=== PATIENT | female | born 1960 | race Two or more races ===

== ENCOUNTER 2019-06-05 20:50 | Emergency (ER) | payer OTHER ==
[~2019-06-05] VITALS: Ht 152.4 cm; Wt 70.3 kg
[2019-06-05] MEDS ORDERED: ZONEGRAN100 MG (21:12)
[2019-06-05] MEDS ORDERED: OXCARBAZEPINE300 MG (21:12)
[2019-06-06] MEDS ORDERED: TAMS0.4C PO (02:27)
[2019-06-06] MEDS ORDERED: ULTRACET PO (02:27)
[2019-06-07] MEDS ORDERED: CIPRO500 MG PO (09:45)
== END 2019-06-06 02:52 | disposition home or self-care (01) ==
LOC: ER 20:50
DX: N20.1 Calculus of ureter (principal); K80.80 Other cholelithiasis without obstruction; K59.09 Other constipation

== ENCOUNTER → 2019-06-07 06:00 | Outpatient (CLI) | payer OTHER ==
[~2019-06-07 06:00] MED LIST: CIPRO500 MG PO; OXCARBAZEPINE300 MG; TAMS0.4C PO; ULTRACET PO; ZONEGRAN100 MG
== END | disposition home or self-care (01) ==
LOC: LAB 06:00 → ADM 07:15 → CIR.AMB 06-09 07:15 → EDSTATUS 06-09 07:15 → CIR.AMB 06-09 09:00
DX: I10 Essential (primary) hypertension (principal); K80.10 Calculus of gallbladder with chronic cholecystitis without obstruction; K42.9 Umbilical hernia without obstruction or gangrene